=== PATIENT | male | born 1985 | race Caucasian/White ===

== ENCOUNTER 2021-07-23 15:14 | Inpatient (IN) | payer OTHER, SELFPAY ==
[~2021-07-23] VITALS: Ht 182.9 cm; Wt 81.6 kg
[2021-07-23] MEDS ORDERED: NS 1,000 ML IV ONE (19:35)
[2021-07-23 20:33] LABS: BASO % 0.6 % (0.0-1.0); EOS # 0.1 10^3/uL (0.0-0.5); EOS % 1.3 % (0.0-3.0); HEMATOCRIT 45.9 % (42.0-52.0); HEMOGLOBIN 15.3 g/dl (13.5-17.5); LYMPH # 0.9 10^3/uL (1.5-5.0); LYMPH % 17.3 % (24.0-44.0); MEAN CORPUSCULAR HEMOGLOBIN 27.9 pg (27.0-33.0); MEAN CORPUSCULAR HGB CONC 33.3 g/dl (32.0-36.5); MEAN CORPUSCULAR VOLUME 83.8 fl (80.0-96.0); MONO # 0.6 10^3/uL (0.0-0.8); NEUTROPHILS # 3.7 10^3/uL (1.5-8.5); NEUTROPHILS % 68.4 % (36.0-66.0); RED BLOOD COUNT 5.48 10^6/uL (4.30-6.10); WHITE BLOOD COUNT 5.3 10^3/uL (4.0-10.0)
[2021-07-23 20:43] LABS: INR 1.06; PROTHROMBIN TIME 14.2 SECONDS (12.7-14.5)
[2021-07-23 20:44] LABS: PARTIAL THROMBOPLASTIN TIME 28.1 SECONDS (25.9-37.0)
[2021-07-23 20:51] LABS: AMPHETAMINES LEVEL URINE NEGATIVE (NEGATIVE); BARBITURATES URINE NEGATIVE (NEGATIVE); BENZODIAZEPINES URINE NEGATIVE (NEGATIVE); CANNABINOIDS URINE POSITIVE (NEGATIVE); COCAINE METABOLITE URINE NEGATIVE (NEGATIVE); METHADONE URINE NEGATIVE (NEGATIVE); OPIATES URINE NEGATIVE (NEGATIVE); PHENCYCLIDINE URINE NEGATIVE (NEGATIVE)
[2021-07-23 20:53] LABS: PLATELET COUNT, AUTOMATED 1 10^3/uL (150-450)
[2021-07-23 21:02] LABS: ALBUMIN 4.2 GM/DL (3.2-5.2); ALT/SGPT 48 U/L (12-78); BILIRUBIN,DIRECT 0.3 MG/DL (0.0-0.2); BILIRUBIN,TOTAL 1.9 MG/DL (0.2-1.0); BLOOD UREA NITROGEN 20 MG/DL (7-18); CALCIUM LEVEL 9.5 MG/DL (8.5-10.1); CARBON DIOXIDE LEVEL 29 MEQ/L (21-32); CHLORIDE LEVEL 106 MEQ/L (98-107); CREATININE FOR GFR 0.92 MG/DL (0.70-1.30); GLOMERULAR FILTRATION RATE > 60.0 (>60); GLUCOSE, FASTING 84 MG/DL (70-100); POTASSIUM SERUM 3.7 MEQ/L (3.5-5.1); SODIUM LEVEL 140 MEQ/L (136-145); TOTAL PROTEIN 8.3 GM/DL (6.4-8.2)
--- NOTE | 2021-07-23 22:21 | HPEPDOC ---
[facility] Medical History & Physical Date of Admission Jul 23, 2021 Date of Service: Jul 23, 2021 Primary Care Physician: EARL HURST Attending Physician: LINCOLN SEAMAN MD History and Physical CHIEF COMPLAINT: rash HISTORY OF PRESENT ILLNESS: is a pleasant 36yo male w/ notable PMHx of cluster headaches and previous novel coronavirus infection (March 2021) who presented to the [facility] ED on 07/23/21 with a chief complaint of multiple small red areas on his skin. Roughly 2 weeks ago, the patient noticed small red areas over bilateral feet. Over the past week, more areas of redness have developed and have also now spread over bilateral upper and lower extremities, chest, and neck. He reports since the areas arose, his hands and feet have felt cold. He denies any associated pruritus. Patient denies any other symptoms on review; namely he denies any recent fever, chills, night sweats, unintentional change in weight, new lumps or bumps, areas of active bleeding/hemoptysis/melena/hematochezia/hematuria, chest pain, palpitations, dyspnea, pleuritic chest pain, abdominal pain/nausea/vomiting/diarrhea, dysuria. He also denies any recent changes to medications, recent significant travel, or sick contacts. Of note on review, patient reports taking LSD for abortive treatment of cluster headaches. He has been doing this for an extended period of time, and reports using only 1/5 of usual recreational dose. He has not had a cluster headache since December 2020, which was the last time he used LSD. Other than the LSD, he denies any other significant nonprescribed medication/IV drug/street drug use. In the ED, patient was found to have severe neutropenia (platelet count of 1000). The ED provider contacted the on-call project product manager/oncologist (Dr. Chong) who recommended starting the patient on oral daily dexamethasone for 4 days, intravenous immunoglobulin, abdominal ultrasound to assess for splenomegaly, and viral work-up in the form of HIV, hepatitis profile, and LDH. PAST MEDICAL/SURGICAL HISTORY: Cluster headaches, follows with Dr. Guy of [facility] ([place]). -Is prescribed 15 L of supplemental oxygen for 15 minutes for use and abortive treatment. -Also takes LSD as abortive measure as detailed above COVID-19 infection in March 2021; remains unvaccinated Left inguinal hernia surgery at the age of 13 or 14 Extraction of 2 lower wisdom teeth SOCIAL HISTORY: Engaged and lives in [place]. He is due to get later this week to his fiance of 11 years. Has a 5-year-old daughter. 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 Patient is a former smoker, having quit 9 years ago; [id number] history averaging 1.5 packs/day for 12-13 years. -Patient began vaping after stopping smoking; quit vaping in March 2021 when he had Covid Reports occasional alcohol use, drinking a couple drinks each month In addition to the LSD use for abortive measures related to cluster headaches, patient also occasionally smokes marijuana for insomnia; denies any IV drug use Patient reports he is monogamous with his fiance FAMILY HISTORY: Father: Hypertension and cluster headaches Brother: Cluster headaches ALLERGIES: Please see below. REVIEW OF SYSTEMS: 10 point review of systems complete, all negative otherwise stated in HPI HOME MEDICATIONS: Please see below. PHYSICAL EXAMINATION: VITAL SIGNS: Temperature 98.2, pulse 105, respiratory rate 16, blood pressure 128/80, pulse oximetry 98% on room air. GENERAL APPEARANCE: Pleasant thin male lying in ED bed. In no acute distress. Skin: There is petechiae widely dispersed over bilateral upper and lower extremities, chest, neck, scalp, head, and abdomen; areas of greatest density are over the dorsum of both feet. There is also mild amount of petechia of the mucous membranes underneath the tongue. Oral cavity: MMM. There are areas of mild petechiae underneath the tongue. No pharyngeal erythema or exudate appreciated. HEENT: Normocephalic, atraumatic. Noninjected, anicteric sclera. No significant conjunctival pallor appreciated. CARDIOVASCULAR: Regular rate, regular rhythm. Normal S1, S2. No murmurs or rubs appreciated. LUNGS: Clear to auscultation bilaterally with no adventitious breath sounds appreciated. Speaking full sentences. Breathing room air. Symmetric chest expansion. ABDOMEN: Hypoactive bowel sounds throughout. No guarding or rigidity appreciated. Soft, nontender nondistended. MUSCULOSKELETAL: 5/5 muscle strength of upper and lower extremities bilaterally. EXTREMITIES: Feet are cool to the touch bilaterally. 2+ radial pulses bilaterally. Bilateral lower extremities free of pitting edema. No signs of clubbing or cyanosis. NEUROLOGICAL: No gross focal neurologic deficits appreciated. Nondysarthric speech. PSYCHIATRIC: Mood and affect appear appropriate. LABORATORY DATA: Please see below. IMAGING: An abdominal ultrasound has been ordered and report is pending. MICROBIOLOGY: Please see below. ASSESSMENT & PLAN: This is a 36-year-old male with history of cluster headache and previous Covid- 19 infection (March 2021) who presented to the ED on 07/23 with 2 weeks of petechiae that started on his feet and have spread over all 4 extremities and chest. He was found to be severely thrombocytopenic. He will be admitted severe thrombocytopenia and treated for likely immune thrombocytopenia. #Severe thrombocytopenia -Patient presented with worsening diffuse petechiae over the past 2 weeks -Initial platelet count of 1000; hemoglobin and WBC unaffected, pointing to more of an ITP picture rather than TTP -Immature platelet fraction was elevated with normal hemoglobin and WBC, indicat ing that the issue is less likely of production, but more destructive -likely the result of immune thrombocytopenia; potentially from ITP and/or sequelae of recent Covid infection -Recent literature documents cases of immune thrombocytopenia in patients who have been infected with COVID-19 -ED provider spoke with Dr. Chong of hematology/oncology regarding the patient -Per ED provider, Dr. Chong recommended abdominal ultrasound to assess for splenomegaly; 4 days of oral dexamethasone 40 mg qd; intravenous immunoglobulin 1 g/kg IV x2 days; viral work-up (HIV and hepatitis profile); peripheral smear ordered -Repeat CBC with differential has been ordered #Direct hyperbilirubinemia -T bili 1.9, direct bili 0.3 -AST and ALT WNL -Patient denies any abdominal pain; no signs of jaundice on exam; patient reports that he has been told at prior healthcare provider appointment that he had elevated bilirubin -An abdominal ultrasound has been ordered in the setting of the severe thromb ocytopenia to assess his spleen that should also provide context on biliary tree #Tachycardia -Patient initially was tachycardic with a heart rate of 105; at time of admission examination, repeat pulse manually was 84 bpm -Patient denies any current or recent chest pain, chest pressure, shortness of breath, or palpitations #History of cluster headaches -Patient reports last headache was in December 2020; uses both prescribed oxygen and LSD for abortive treatments -Both the patient's father and brother also suffered from cluster headaches -Patient had been following with Dr. Guy of [facility] here in [place], but, per patient, has not been seen in 5 years #DVT prophylaxis: Pharmacotherapy deferred in the setting of severe neutropenia; teds and sequentials ordered CODE STATUS: Full code Disposition: Pending improvement in severe thrombocytopenia. Vital Signs Vital Signs Date Time Temp Pulse Resp B/P (MAP) Pulse Ox O2 Delivery O2 Flow Rate FiO2 07/23/21 15:14 98.2 105 16 128/80 (96) 98 Room Air Laboratory Data Labs 24H Laboratory Tests 2 07/23/21 19:41: Urine Opiates Screen NEGATIVE, Urine Methadone Screen NEGATIVE, Urine Barbiturates Screen NEGATIVE, Urine Phencyclidine Screen NEGATIVE, Urine Amphetamines Screen NEGATIVE, Urine Benzodiazepines Screen NEGATIVE, Urine Cocaine Metabolite Screen NEGATIVE, Urine Cannabinoids Screen POSITIVEH 07/23/21 19:56: Immature Granulocyte % (Auto) 0.4, Neutrophils (%) (Auto) 68.4H, Lymphocytes (%) (Auto) 17.3L, Monocytes (%) (Auto) 12.0H, Eosinophils (%) (Auto) 1.3, Basophils (%) (Auto) 0.6, Neutrophils # (Auto) 3.7, Lymphocytes # (Auto) 0.9L, Monocytes # (Auto) 0.6, Eosinophils # (Auto) 0.1, Basophils # (Auto) 0.0, Nucleated Red Blood Cells % (auto) 0.0, Differential Slide Review Report, Immature Platelet Fraction 11.9H, Peripheral Blood Smear Path Consult PERIPHERAL SMEAR, Prothrombin Time 14.2H, Prothromb Time International Ratio 1.06, Activated Partial Thromboplast Time 28.1, Fibrinogen 367, Anion Gap 5L, Glomerular Filtration Rate > 60.0, Calcium Level 9.5, Total Bilirubin 1.9H, Direct Bilirubin 0.3H, Aspartate Amino Transf (AST/SGOT) 28, Alanine Aminotransferase (ALT/SGPT) 48, Alkaline Phosphatase 89, Total Protein 8.3H, Albumin 4.2, Albumin/Globulin Ratio 1.0 CBC/BMP Laboratory Tests 07/23/21 19:56 Home Medications Scheduled Multivitamins (Thera M Plus Tablet) 1 Each Tablet, 1 TAB PO DAILY Allergies Coded Allergies: No Known Allergies (Verified Allergy, Unknown, 07/23/21) GME ATTESTATION GME ATTESTATION My faculty preceptor for this patient encounter was physically present during the encounter and was fully available. All aspects of the patient interview, examination, medical decision making process, and medical care plan development were reviewed and approved by the faculty preceptor. The faculty preceptor is aware and concurs with the plan as stated in the body of this note and will attest to such by his/her cosignature. ATTENDING NOTE Time of service 925pm Mr. Tompkins is a 36 yr old w a hx of polysubstance (LSD and THC) abuse who has had bleeding gums and a red rash on his lower extremities. He will be admitted for #Acute thrombocytopenia possibly due to drug induced vs 2/2 increased destruction ( ie immune disorders, viral infection, HIV ) vs due splenic sequestration. - because the patient is not having life threatening bleeding we will hold off platelet transfusion until ITP & TTP are definitively r/o Rest per H&P JUAN BONNER D.O. Jul 23, 2021 22:21 LINCOLN SEAMAN MD Jul 24, 2021 04:16
[2021-07-23 22:44] LABS: HEPATITIS A ANTIBODY IGM NEGATIVE (NEGATIVE); HEPATITIS B CORE ANTIBODY IGM NEGATIVE (NEGATIVE); HEPATITIS B SURFACE ANTIGEN NEGATIVE (NEGATIVE); HEPATITIS C VIRUS ABY INDEX 0.1 INDEX (<0.8); HIV 1&2 SCREEN CENTAUR NEGATIVE (NEGATIVE); LDH LACTATE DEHYDROGENASE 259 U/L (87-241)
--- NOTE | 2021-07-23 23:14 | REPVR ---
PROCEDURE INFORMATION: Exam: US Abdomen; Limited Exam date and time: 07/23/21 (9:30pm) Age: 36 years old Clinical indication: Thrombocytopenia. Possible splenomegaly. TECHNIQUE: Imaging protocol: US abdomen. Real time ultrasound with image documentation. Limited examination focused on the region of clinical interest. COMPARISON: No relevant prior studies available FINDINGS: A limited examination was performed, with visualization of the spleen and left kidney. The spleen is enlarged, measuring 12.1 cm in length. No focal splenic lesions. The left kidney measures 10.6 cm in length. No hydronephrosis. No renal mass is seen. No abnormal fluid collections. No abnormal mass is seen. IMPRESSION: No acute findings. Splenomegaly. No focal splenic lesions. The left kidney is unremarkable. Electronically signed by: Migdalia Mcdonald On 07/23/2021 23:14:00 PM
[2021-07-23] MEDS ORDERED: VITMTA PO (23:27)
[2021-07-23 23:28] LABS: PLTBLUE- EDTA FREE CALC 1 K/mm3 (172-450)
[2021-07-23 23:29] LABS: PLTBLUE- EDTA FREE MACHINE 1 10^3/uL (172-450)
[2021-07-23] MEDS ORDERED: HOME MED LIST COMPLETE! XX SCH (23:30)
[2021-07-24] MEDS: IMMUNE GLOBULIN 10% 80 GM in IV 1 EA IV SCH ×2 (01:00→07:42)
[2021-07-24] MEDS: NS 1,000 ML IV SCH ×2 (04:15→20:53)
[2021-07-24 05:45] LABS: HEMATOCRIT 40.1 % (42.0-52.0); HEMOGLOBIN 13.4 g/dl (13.5-17.5); LYMPH # 0.3 10^3/uL (1.5-5.0); LYMPH % 7.2 % (24.0-44.0); MEAN CORPUSCULAR HEMOGLOBIN 27.9 pg (27.0-33.0); MEAN CORPUSCULAR HGB CONC 33.4 g/dl (32.0-36.5); MEAN CORPUSCULAR VOLUME 83.5 fl (80.0-96.0); MONO % 0.7 % (2.0-8.0); NEUTROPHILS # 3.7 10^3/uL (1.5-8.5); NEUTROPHILS % 91.9 % (36.0-66.0)
[2021-07-24 06:27] LABS: ALBUMIN 3.3 GM/DL (3.2-5.2); ALT/SGPT 37 U/L (12-78); BILIRUBIN,TOTAL 1.4 MG/DL (0.2-1.0); BLOOD UREA NITROGEN 16 MG/DL (7-18); CALCIUM LEVEL 8.6 MG/DL (8.5-10.1); CARBON DIOXIDE LEVEL 24 MEQ/L (21-32); CHLORIDE LEVEL 109 MEQ/L (98-107); GLOMERULAR FILTRATION RATE > 60.0 (>60); GLUCOSE, FASTING 186 MG/DL (70-100); MAGNESIUM LEVEL 1.8 MG/DL (1.8-2.4); PLATELET COUNT, AUTOMATED 1 10^3/uL (150-450); SODIUM LEVEL 140 MEQ/L (136-145); TOTAL PROTEIN 7.6 GM/DL (6.4-8.2)
[2021-07-24] MEDS ORDERED: OMEPRAZOLE 20 MG CAP PO ONE (11:10)
--- NOTE | 2021-07-24 11:42 | IPNPDOC ---
Text Note Date of Service The patient was seen on 07/24/21. NOTE Subjective: No any acute events overnight. No any signs of bleeding Objective: GENERAL APPEARANCE: NAD HEENT: no scleral icterus, no JVD, EOMI CARDIOVASCULAR: S1S2 LUNGS: Diminished lung sounds bilaterally ABDOMEN: soft & not tender w palpation MUSCULOSKELETAL: no cyanosis, no swelling INTEGUMENT: Multiple petechia of lower extremities and shoulder area NEUROLOGICAL: cranial nerve function from 2-12 intact, follows commands, speech not dysarthric Assessment: Patient is 36 years old male with past medical history of cluster headache was admitted to the hospital with thrombocytopenia. Thrombocytopenia/ITP Most likely patient developed ITP Hematology team recommended dexamethasone 40 mg for 4 days and IgG IV 1 g/kg daily for 2 -3 days Hepatitis panel negative Await H. pylori test TRANG pending HIV test for antibody negative Continue to monitor platelet count No signs of internal bleeding History of cluster headache Follow-up with PCP DVT prophylaxis with teds and sequential VS,Fishbone, I+O VS, Fishbone, I+O Laboratory Tests 07/23/21 19:56 07/24/21 05:18 Vital Signs Date Time Temp Pulse Resp B/P (MAP) Pulse Ox O2 Delivery O2 Flow Rate FiO2 07/24/21 07:48 97.5 84 16 120/76 (91) 99 Room Air I&O- Last 24 Hours up to 6 AM 07/24/21 06:00 Intake Total 1000 ml Balance 1000 ml GREG PRECIADO DO Jul 24, 2021 11:42
[2021-07-24 15:25] VITALS: BP 128/73
[2021-07-24 16:36] LABS: BASO % 0.1 % (0.0-1.0); HEMATOCRIT 40.7 % (42.0-52.0); HEMOGLOBIN 13.7 g/dl (13.5-17.5); LYMPH # 0.3 10^3/uL (1.5-5.0); MEAN CORPUSCULAR HEMOGLOBIN 28.1 pg (27.0-33.0); MEAN CORPUSCULAR HGB CONC 33.7 g/dl (32.0-36.5); MEAN CORPUSCULAR VOLUME 83.6 fl (80.0-96.0); MONO # 0.2 10^3/uL (0.0-0.8); MONO % 1.8 % (2.0-8.0); NEUTROPHILS # 10.9 10^3/uL (1.5-8.5); NEUTROPHILS % 94.7 % (36.0-66.0); RED BLOOD COUNT 4.87 10^6/uL (4.30-6.10); WHITE BLOOD COUNT 11.5 10^3/uL (4.0-10.0)
[2021-07-24 16:42] LABS: PLATELET COUNT, AUTOMATED 11 10^3/uL (150-450)
--- NOTE | 2021-07-24 18:49 | CR.PDOC ---
General Date of Consultation: Jul 24, 2021 Referring Provider: GRGE PRECIADO DO Attending Physician: GREG PRECIADO DO Consultation REASON FOR CONSULTATION: Profound thrombocytopenia HISTORY OF PRESENT ILLNESS: 36-year-old came in for petechial rash. Platelet count noted to be 1K/UL. ALLERGIES: Please see below. HOME MEDICATIONS: Please see below. PAST MEDICAL HISTORY: Cluster headaches COVID-19 infection in March 2021; unvaccinated PAST SURGICAL HISTORY: Left inguinal hernia surgery at the age of 13 or 14 Extraction of 2 lower wisdom teeth SOCIAL HISTORY: Former smoker with [id number] history of smoking. Quit 9 years ago. Has also been vaping up to March 2021. Occasional alcohol. Uses LSD for headaches. And also smokes marijuana. 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 FAMILY HISTORY: Father: Hypertension and cluster headaches Brother: Cluster headaches REVIEW OF SYSTEMS: The patient reports petechial rash. No other bleeding issues. In particular no epistaxis, no rectal bleeding. No urinary bleeding or gum bleeding. No fevers. No night sweats. No weight loss. Rest of review of systems negative. PHYSICAL EXAMINATION: VITAL SIGNS: Please see below. GENERAL APPEARANCE: Lying comfortably in bed, not in distress. Communicative. HEENT: Pinkish conjunctive anicteric sclerae. No oral mucosal lesions. RESPIRATORY: Lungs are clear. No rales rhonchi no wheeze. CARDIOVASCULAR: S1-S2 regular. No murmur. No gallop. ABDOMEN: Soft, nontender, no guarding, spleen not palpable below costal margin. EXTREMITIES: No clubbing. No cyanosis. No pedal edema. Petechial rash over lower extremities. NEUROLOGICAL: Alert, oriented X3. PSYCHIATRIC: Normal mood. LABORATORY DATA: Please see below. ASSESSMENT/PLAN: Profound thrombocytopenia likely ITP. Platelet count 1 K/UL. Normal WBC count. Normal hemoglobin level. EDTA free platelet count 1K/UL. Peripheral smear review 07/24/2021: Thrombocytopenia. Unremarkable RBC and WBC morphology. HIV negative. Hepatitis C negative. TRANG pending. Abdominal ultrasound 07/23/2021 reported splenomegaly at 12.1 cm. The patient is currently on pulse dexamethasone 40 mg p.o. daily x4 days. Has also started IVIG 1 g/kg to be given for 2 days. Continue monitoring platelet count. May transfuse platelets if actively bleeding and platelet count less than 50 K/UL. I recommend a bone marrow aspiration and biopsy as patient has splenomegaly. The patient tells me that he is getting on Wednesday and wants to leave on Wednesday. I discussed that there is a possibility that his platelet count may not be optimal for discharge on Wednesday. Will arrange a follow-up appointment as outpatient if the patient decides to leave this weekend. Thank you for referring Mr. Mehrdad Tompkins. Vital Signs/I&O Vital Signs Date Time Temp Pulse Resp B/P (MAP) Pulse Ox O2 Delivery O2 Flow Rate FiO2 07/24/21 15:25 98.0 100 22 128/73 (91) 97 Room Air I&O- Last 24 Hours up to 6 AM 07/24/21 06:00 Intake Total 1000 ml Balance 1000 ml Laboratory Data Labs 24H Laboratory Tests 2 07/23/21 19:41: Urine Opiates Screen NEGATIVE, Urine Methadone Screen NEGATIVE, Urine Barbiturates Screen NEGATIVE, Urine Phencyclidine Screen NEGATIVE, Urine Amphetamines Screen NEGATIVE, Urine Benzodiazepines Screen NEGATIVE, Urine Cocaine Metabolite Screen NEGATIVE, Urine Cannabinoids Screen POSITIVEH 07/23/21 19:56: Immature Granulocyte % (Auto) 0.4, Neutrophils (%) (Auto) 68.4H, Lymphocytes (%) (Auto) 17.3L, Monocytes (%) (Auto) 12.0H, Eosinophils (%) (Auto) 1.3, Basophils (%) (Auto) 0.6, Neutrophils # (Auto) 3.7, Lymphocytes # (Auto) 0.9L, Monocytes # (Auto) 0.6, Eosinophils # (Auto) 0.1, Basophils # (Auto) 0.0, Nucleated Red Blood Cells % (auto) 0.0, Differential Slide Review Report, Immature Platelet Fraction 11.9H, Peripheral Blood Smear Path Consult PERIPHERAL SMEAR, Prothrombin Time 14.2H, Prothromb Time International Ratio 1.06, Activated Partial Thromboplast Time 28.1, Fibrinogen 367, Anion Gap 5L, Glomerular Filtration Rate > 60.0, Calcium Level 9.5, Total Bilirubin 1.9H, Direct Bilirubin 0.3H, Aspartate Amino Transf (AST/SGOT) 28, Alanine Aminotransferase (ALT/SGPT) 48, Alkaline Phosphatase 89, Lactate Dehydrogenase 259H, Total Protein 8.3H, Albumin 4.2, Albumin/Globulin Ratio 1.0, Hepatitis A IgM Antibody NEGATIVE, Hepatitis B Surface Antigen NEGATIVE, Hepatitis B Core IgM Antibody NEGATIVE, Hepatitis C Antibody Index 0.1, HIV Antigen/Antibody Combo Qual NEGATIVE 07/23/21 23:17: Platelet Count, EDTA Free 1*L 07/24/21 05:18: Immature Granulocyte % (Auto) 0.2, Neutrophils (%) (Auto) 91.9H, Lymphocytes (%) (Auto) 7.2L, Monocytes (%) (Auto) 0.7L, Eosinophils (%) (Auto) 0.0, Basophils (%) (Auto) 0.0, Neutrophils # (Auto) 3.7, Lymphocytes # (Auto) 0.3L, Monocytes # (Auto) 0.0, Eosinophils # (Auto) 0.0, Basophils # (Auto) 0.0, Nucleated Red Blood Cells % (auto) 0.0, Anion Gap 7L, Glomerular Filtration Rate > 60.0, Calcium Level 8.6, Total Bilirubin 1.4H, Aspartate Amino Transf (AST/SGOT) 17, Alanine Aminotransferase (ALT/SGPT) 37, Alkaline Phosphatase 77, Total Protein 7.6, Albumin 3.3#, Albumin/Globulin Ratio 0.8, Magnesium Level 1.8 07/24/21 16:19: Immature Granulocyte % (Auto) 0.4, Neutrophils (%) (Auto) 94.7H, Lymphocytes (%) (Auto) 3.0L, Monocytes (%) (Auto) 1.8L, Eosinophils (%) (Auto) 0.0, Basophils (%) (Auto) 0.1, Neutrophils # (Auto) 10.9H, Lymphocytes # (Auto) 0.3L, Monocytes # (Auto) 0.2, Eosinophils # (Auto) 0.0, Basophils # (Auto) 0.0, Nucleated Red Blood Cells % (auto) 0.0 CBC/BMP Laboratory Tests 07/23/21 19:56 07/24/21 05:18 07/24/21 16:19 Microbiology Microbiology 07/24/21 Respiratory Virus Panel (PCR) ([facility]) - Final, Complete Allergies Coded Allergies: No Known Allergies (Verified Allergy, Unknown, 07/23/21) Home Medications Scheduled Multivitamins (Thera M Plus Tablet) 1 Each Tablet, 1 TAB PO DAILY, (Reported) JASVIR RICE MD [facility] Jul 24, 2021 18:06
[2021-07-24 20:00] VITALS: BP 120/74
[2021-07-25] VITALS (19 sets, daily range): BP systolic 103–121; BP diastolic 54–83
[2021-07-25 06:11] LABS: BASO % 0.1 % (0.0-1.0); HEMATOCRIT 37.2 % (42.0-52.0); HEMOGLOBIN 12.3 g/dl (13.5-17.5); LYMPH # 0.5 10^3/uL (1.5-5.0); LYMPH % 3.3 % (24.0-44.0); MEAN CORPUSCULAR HEMOGLOBIN 28.1 pg (27.0-33.0); MEAN CORPUSCULAR HGB CONC 33.1 g/dl (32.0-36.5); MEAN CORPUSCULAR VOLUME 85.1 fl (80.0-96.0); MONO # 0.8 10^3/uL (0.0-0.8); MONO % 5.2 % (2.0-8.0); NEUTROPHILS # 14.1 10^3/uL (1.5-8.5); NEUTROPHILS % 90.9 % (36.0-66.0); RED BLOOD COUNT 4.37 10^6/uL (4.30-6.10); WHITE BLOOD COUNT 15.5 10^3/uL (4.0-10.0)
[2021-07-25 06:14] LABS: PLATELET COUNT, AUTOMATED 18 10^3/uL (150-450)
[2021-07-25 06:29] LABS: ALBUMIN 2.7 GM/DL (3.2-5.2); ALT/SGPT 38 U/L (12-78); BILIRUBIN,TOTAL 0.8 MG/DL (0.2-1.0); BLOOD UREA NITROGEN 14 MG/DL (7-18); CALCIUM LEVEL 8.3 MG/DL (8.5-10.1); CARBON DIOXIDE LEVEL 25 MEQ/L (21-32); CHLORIDE LEVEL 113 MEQ/L (98-107); CREATININE FOR GFR 0.88 MG/DL (0.70-1.30); GLOMERULAR FILTRATION RATE > 60.0 (>60); GLUCOSE, FASTING 137 MG/DL (70-100); MAGNESIUM LEVEL 1.7 MG/DL (1.8-2.4); POTASSIUM SERUM 4.1 MEQ/L (3.5-5.1); SODIUM LEVEL 143 MEQ/L (136-145); TOTAL PROTEIN 7.7 GM/DL (6.4-8.2)
[2021-07-25] MEDS ORDERED: IMMUNE GLOBULIN 10% 80 GM in IV 1 EA IV SCH (08:00)
[2021-07-25] MEDS: OMEPRAZOLE 20 MG CAP PO SCH (10:33)
[2021-07-25] MEDS: NS 1,000 ML IV SCH (10:33)
[2021-07-25 11:08] LABS: ANTINUCLEAR ANTIBODIES DIRECT Negative (Negative)
--- NOTE | 2021-07-25 11:45 | IPNPDOC ---
Text Note Date of Service The patient was seen on 07/25/21. NOTE Subjective: No any acute events overnight. No any signs of bleeding. Patient denied any fever or chills Objective: GENERAL APPEARANCE: NAD HEENT: no scleral icterus, no JVD, EOMI CARDIOVASCULAR: S1S2 LUNGS: Diminished lung sounds bilaterally ABDOMEN: soft & not tender w palpation MUSCULOSKELETAL: no cyanosis, no swelling INTEGUMENT: Multiple petechia of lower extremities and shoulder area NEUROLOGICAL: cranial nerve function from 2-12 intact, follows commands, speech not dysarthric Assessment: Patient is 36 years old male with past medical history of cluster headache was admitted to the hospital with thrombocytopenia. Thrombocytopenia/ITP Most likely patient developed ITP Hematology team recommended dexamethasone 40 mg for 4 days and IgG IV 1 g/kg daily for 2 -3 days Hepatitis panel negative Await H. pylori test TRANG negative HIV test for antibody negative platelet count improved today and became 18 No signs of internal bleeding Dr. Chong saw patient yesterday she recommended but marrow biopsy however his platelet count less than 50,000 Most likely patient will need bone marrow biopsy in the outpatient settings History of cluster headache Follow-up with PCP DVT prophylaxis with teds and sequential VS,Fishbone, I+O VS, Fishbone, I+O Laboratory Tests 07/24/21 16:19 07/25/21 05:40 Vital Signs Date Time Temp Pulse Resp B/P (MAP) Pulse Ox O2 Delivery O2 Flow Rate FiO2 07/25/21 08:30 98.9 87 18 115/73 (87) 95 Room Air I&O- Last 24 Hours up to 6 AM 07/25/21 06:00 Intake Total 1160 ml Output Total 0 ml Balance 1160 ml GREG PRECIADO DO Jul 25, 2021 11:45
[2021-07-26] VITALS: BP 117/68
[2021-07-26] MEDS: NS 1,000 ML IV SCH (00:46)
[2021-07-26 04:00] VITALS: BP 104/59
[2021-07-26 06:24] LABS: BASO % 0.1 % (0.0-1.0); HEMATOCRIT 35.8 % (42.0-52.0); HEMOGLOBIN 11.9 g/dl (13.5-17.5); LYMPH # 0.5 10^3/uL (1.5-5.0); LYMPH % 4.5 % (24.0-44.0); MEAN CORPUSCULAR HEMOGLOBIN 28.7 pg (27.0-33.0); MEAN CORPUSCULAR HGB CONC 33.2 g/dl (32.0-36.5); MEAN CORPUSCULAR VOLUME 86.3 fl (80.0-96.0); MONO # 0.5 10^3/uL (0.0-0.8); MONO % 5.2 % (2.0-8.0); NEUTROPHILS # 9.3 10^3/uL (1.5-8.5); NEUTROPHILS % 89.5 % (36.0-66.0); RED BLOOD COUNT 4.15 10^6/uL (4.30-6.10); WHITE BLOOD COUNT 10.4 10^3/uL (4.0-10.0)
[2021-07-26 06:31] LABS: PLATELET COUNT, AUTOMATED 33 10^3/uL (150-450)
[2021-07-26 06:50] LABS: ALBUMIN 2.5 GM/DL (3.2-5.2); ALT/SGPT 31 U/L (12-78); BILIRUBIN,TOTAL 0.9 MG/DL (0.2-1.0); BLOOD UREA NITROGEN 17 MG/DL (7-18); CALCIUM LEVEL 7.8 MG/DL (8.5-10.1); CARBON DIOXIDE LEVEL 27 MEQ/L (21-32); CHLORIDE LEVEL 109 MEQ/L (98-107); CREATININE FOR GFR 0.82 MG/DL (0.70-1.30); GLOMERULAR FILTRATION RATE > 60.0 (>60); GLUCOSE, FASTING 120 MG/DL (70-100); MAGNESIUM LEVEL 2.1 MG/DL (1.8-2.4); SODIUM LEVEL 140 MEQ/L (136-145); TOTAL PROTEIN 8.6 GM/DL (6.4-8.2)
[2021-07-26 08:00] VITALS: BP 108/63
[2021-07-26] MEDS: OMEPRAZOLE 20 MG CAP PO SCH (09:58)
[2021-07-26 10:00] VITALS: BP 126/77
[2021-07-26 11:46] LABS: BASO % 0.2 % (0.0-1.0); HEMATOCRIT 36.2 % (42.0-52.0); LYMPH # 0.6 10^3/uL (1.5-5.0); LYMPH % 4.8 % (24.0-44.0); MEAN CORPUSCULAR HEMOGLOBIN 28.2 pg (27.0-33.0); MEAN CORPUSCULAR HGB CONC 33.1 g/dl (32.0-36.5); MONO # 1.1 10^3/uL (0.0-0.8); MONO % 8.7 % (2.0-8.0); NEUTROPHILS # 10.5 10^3/uL (1.5-8.5); NEUTROPHILS % 85.6 % (36.0-66.0); PLATELET COUNT, AUTOMATED 30 10^3/uL (150-450); RED BLOOD COUNT 4.26 10^6/uL (4.30-6.10); WHITE BLOOD COUNT 12.3 10^3/uL (4.0-10.0)
[2021-07-26 12:00] VITALS: BP 105/65
[2021-07-26] MEDS ORDERED: DEXA4TA PO (12:02)
--- NOTE | 2021-07-26 15:40 | DS.PDOC ---
Discharge Summary General Date of Admission Jul 23, 2021 at 21:13 Date of Discharge 07/26/21 Discharge Summary PROCEDURES PERFORMED DURING STAY: [None]. ADMITTING DIAGNOSES: Severe thrombocytopenia Direct hyperbilirubinemia Tachycardia History of cluster headaches DISCHARGE DIAGNOSES: Severe thrombocytopenia/ ITP Direct hyperbilirubinemia Tachycardia History of cluster headaches COMPLICATIONS/CHIEF COMPLAINT: Tachycardia,Thrombocytopenia. HISTORY OF PRESENT ILLNESS: is a pleasant 36yo male w/ notable PMHx of cluster headaches and previous novel coronavirus infection (March 2021) who presented to the [facility] ED on 07/23/21 with a chief complaint of multiple small red areas on his skin. Roughly 2 weeks ago, the patient noticed small red areas over bilateral feet. Over the past week, more areas of redness have developed and have also now spread over bilateral upper and lower extremities, chest, and neck. He reports since the areas arose, his hands and feet have felt cold. He denies any associated pruritus. Patient denies any other symptoms on review; namely he denies any recent fever, chills, night sweats, unintentional change in weight, new lumps or bumps, areas of active bleeding/hemoptysis/melena/hematochezia/hematuria, chest pain, palpitations, dyspnea, pleuritic chest pain, abdominal pain/nausea/vomiting/diarrhea, dysuria. He also denies any recent changes to medications, recent significant travel, or sick contacts. In the ED, patient was found to have severe neutropenia (platelet count of 1000). The ED provider contacted the on-call scientist engineer/oncologist (Dr. Hemant wyman) who recommended starting the patient on oral daily dexamethasone for 4 days, intravenous immunoglobulin, abdominal ultrasound to assess for splenomegaly, and viral work-up in the form of HIV, hepatitis profile, and LDH. HOSPITAL COURSE: During the hospital stay the following issue addressed Most likely patient developed ITP Patient received dexamethasone 40 mg for 4 days and IgG IV 1 g/kg daily for 2 -3 days Hepatitis panel negative H. pylori test pending TRANG negative HIV test for antibody negative platelet count improved today and became 33 today No signs of internal bleeding Dr. Chong recommended but marrow biopsy however his platelet count less than 50,000 Most likely patient will need bone marrow biopsy in the outpatient settings I talked to Dr. Bañuelos, he is okay to discharge patient today with close follow-up with scientist engineer DISCHARGE MEDICATIONS: Please see below. ALLERGIES: Please see below. PHYSICAL EXAMINATION ON DISCHARGE: VITAL SIGNS: Please see below. Objective: GENERAL APPEARANCE: NAD HEENT: no scleral icterus, no JVD, EOMI CARDIOVASCULAR: S1S2 LUNGS: Diminished lung sounds bilaterally ABDOMEN: soft & not tender w palpation MUSCULOSKELETAL: no cyanosis, no swelling INTEGUMENT: Multiple petechiae of lower extremities bilaterally and over shoulders NEUROLOGICAL: cranial nerve function from 2-12 intact, follows commands, speech not dysarthric LABORATORY DATA: Please see below. IMAGING: [facility] NAME: ANGELA AKINS DATE OF : 1985 BUSINESS NUMBER: [id number] AGE: 36 SEX: M REPORT #: [id number] ROOM: ED INP TECHNOLOGIST: RITA DOCTOR: JONATHAN BLANCO PA-C Ordered for Date&Time: 07/23/212107 cc: [~ rep ct ivnm] Service Date&Time: 07/23/212140 This report is in Signed status. Interpretation performed by [facility]. Thank you for having your radiology procedures performed at [facility] RADIOLOGY REPORT Date&Time printed: [~ rep prt dt last] [~ rep prt tm last] Page 2 of 2 [place] [id number] RADIOLOGY REPORT This report is in Signed status. Interpretation performed by [facility]. Thank you for having your radiology procedures performed at [facility] RADIOLOGY REPORT Date&Time printed: [~ rep prt dt last] [~ rep prt tm last] Page 1 of 1 Exam: US Abdomen; Limited Exam date and time: 07/23/21 (9:30pm) Age: 36 years old Clinical indication: Thrombocytopenia. Possible splenomegaly. TECHNIQUE: Imaging protocol: US abdomen. Real time ultrasound with image documentation. Limited examination focused on the region of clinical interest. COMPARISON: No relevant prior studies available FINDINGS: A limited examination was performed, with visualization of the spleen and left kidney. The spleen is enlarged, measuring 12.1 cm in length. No focal splenic lesions. The left kidney measures 10.6 cm in length. No hydronephrosis. No renal mass is seen. No abnormal fluid collections. No abnormal mass is seen. IMPRESSION: No acute findings. Splenomegaly. No focal splenic lesions. The left kidney is unremarkable. Electronically signed by: Migdalia Wu On 07/23/2021 23:14:00 PM DD: MIGDALIA WU MD 07/23/212140 DT: JEVON 07/23/212313 DS: LOUISA 07/23/212313 [~ rep ct labl] PROGNOSIS: Fair ACTIVITY: [As tolerated]. DIET: Regular DISCHARGE PLAN: Home DISCHARGE INSTRUCTIONS: Avoid alcohol, avoid contact sport till normalization of platelet count ITEMS TO FOLLOWUP ON ON OUTPATIENT: Follow-up with oncologist scientist engineer Dr. Chong DISCHARGE CONDITION: [Stable]. TIME SPENT ON DISCHARGE: 40minutes. Vital Signs/I&Os Vital Signs Date Time Temp Pulse Resp B/P (MAP) Pulse Ox O2 Delivery O2 Flow Rate FiO2 07/26/21 12:00 97.7 57 20 105/65 (78) 97 Room Air I&O- Last 24 Hours up to 6 AM 07/26/21 06:00 Intake Total 600 ml Output Total 0 ml Balance 600 ml Laboratory Data Labs 24H Laboratory Tests 2 07/26/21 04:56: Immature Granulocyte % (Auto) 0.7, Neutrophils (%) (Auto) 89.5H, Lymphocytes (%) (Auto) 4.5L, Monocytes (%) (Auto) 5.2, Eosinophils (%) (Auto) 0.0, Basophils (%) (Auto) 0.1, Neutrophils # (Auto) 9.3H, Lymphocytes # (Auto) 0.5L, Monocytes # (Auto) 0.5, Eosinophils # (Auto) 0.0, Basophils # (Auto) 0.0, Nucleated Red Blood Cells % (auto) 0.0, Anion Gap 4L, Glomerular Filtration Rate > 60.0, Calcium Level 7.8L, Magnesium Level 2.1, Total Bilirubin 0.9, Aspartate Amino Transf (AST/SGOT) 14, Alanine Aminotransferase (ALT/SGPT) 31, Alkaline Phosphatase 61, Total Protein 8.6H, Albumin 2.5L, Albumin/Globulin Ratio 0.4 07/26/21 11:26: Immature Granulocyte % (Auto) 0.7, Neutrophils (%) (Auto) 85.6H, Lymphocytes (%) (Auto) 4.8L, Monocytes (%) (Auto) 8.7H, Eosinophils (%) (Auto) 0.0, Basophils (%) (Auto) 0.2, Neutrophils # (Auto) 10.5H, Lymphocytes # (Auto) 0.6L, Monocytes # (Auto) 1.1H, Eosinophils # (Auto) 0.0, Basophils # (Auto) 0.0, Nucleated Red Blood Cells % (auto) 0.0, Immature Platelet Fraction 10.3 CBC/BMP Laboratory Tests 07/26/21 04:56 07/26/21 11:26 Microbiology Microbiology 07/24/21 Respiratory Virus Panel (PCR) ([facility]) - Final, Complete Discharge Medications Scheduled Dexamethasone (Dexamethasone) 4 Mg Tablet, 40 MG PO DAILY Multivitamins (Thera M Plus Tablet) 1 Each Tablet, 1 TAB PO DAILY, (Reported) Allergies Coded Allergies: No Known Allergies (Verified Allergy, Unknown, 07/23/21) GREG PRECIADO DO Jul 26, 2021 15:40
== END 2021-07-26 15:20 | disposition home or self-care (01) | DRG 661 ==
LOC: M ED 15:14 → M ED INP 21:13 → M PCU 21:13 → ENRESERV 07-24 13:30 → M PCU 07-24 15:21
PROVIDERS: ADMIT Internal Medicine; ATTEND Internal Medicine
DX: D69.3 Immune thrombocytopenic purpura (principal); D70.9 Neutropenia, unspecified; G44.009 Cluster headache syndrome, unspecified, not intractable; Z86.16 Personal history of COVID-19; Z87.891 Personal history of nicotine dependence; E80.6 Other disorders of bilirubin metabolism; F12.10 Cannabis abuse, uncomplicated; R16.1 Splenomegaly, not elsewhere classified

== ENCOUNTER → 2021-11-10 | Outpatient (CLI) | payer OTHER ==
[~2021-11-10] MED LIST: DEXA4TA PO; OMEP-173 PO; VITMTA PO
== END ==
LOC: M RAD 08:36
PROVIDERS: ATTEND Internal Medicine Medical Oncology
DX: R16.1 Splenomegaly, not elsewhere classified (principal)

== ENCOUNTER → 2023-02-06 | Outpatient (CLI) | payer OTHER ==
[2023-02-06 10:13] LABS: HEMATOCRIT 45.2 % (42.0-52.0); HEMOGLOBIN 14.6 g/dl (13.5-17.5); MEAN CORPUSCULAR HEMOGLOBIN 27.1 pg (27.0-33.0); MEAN CORPUSCULAR HGB CONC 32.3 g/dl (32.0-36.5); MEAN CORPUSCULAR VOLUME 83.9 fl (80.0-96.0); PLATELET COUNT, AUTOMATED 261 10^3/uL (150-450); RED BLOOD COUNT 5.39 10^6/uL (4.30-6.10); WHITE BLOOD COUNT 4.4 10^3/uL (4.0-10.0)
[2023-02-06 10:39] LABS: ALKALINE PHOSPHATASE 76 U/L (46-116); ALT/SGPT 27 U/L (7.0-40); AST/SGOT 14 U/L (<34); BILIRUBIN,TOTAL 0.7 MG/DL (0.3-1.2); BLOOD UREA NITROGEN 15 MG/DL (9-23); CALCIUM LEVEL 9.3 MG/DL (8.5-10.1); CARBON DIOXIDE LEVEL 27 MMOL/L (20-31); CHLORIDE LEVEL 107 MMOL/L (98-107); CHOLESTEROL LEVEL 139 MG/DL (<200); CHOLESTEROL RISK RATIO 2.66 (<5); CREATININE FOR GFR 0.87 MG/DL (0.70-1.30); GLOMERULAR FILTRATION RATE > 60.0 (>60); GLUCOSE, FASTING 102 MG/DL (60-100); HDL CHOLESTEROL 52.1 MG/DL (>40); LDL CHOLESTEROL 70.7 MG/DL (<100); NON-HDL-C 86.9 MG/DL; POTASSIUM SERUM 4.4 MMOL/L (3.5-5.1); SODIUM LEVEL 141 MMOL/L (136-145); TOTAL PROTEIN 7.3 G/DL (5.7-8.2); TRIGLYCERIDES LEVEL 81 MG/DL (<150)
[2023-02-06 10:40] LABS: THYROID STIMULATING HORMONE 1.054 uIU/ML (0.55-4.78); TOTAL 25(OH) VITAMIN D 20.6 NG/ML (20.0-100.0)
[2023-02-06 10:41] LABS: TESTOSTERONE 428 NG/DL (241-827)
[2023-02-06 10:56] LABS: HEMOGLOBIN A1c 5.6 % (4.0-6.0)
== END ==
LOC: M RAD 09:00 → M LAB 09:00
PROVIDERS: ATTEND Family Medicine
DX: D64.9 Anemia, unspecified (principal); R53.83 Other fatigue; E03.9 Hypothyroidism, unspecified; R91.8 Other nonspecific abnormal finding of lung field

== ENCOUNTER → 2023-07-28 | Outpatient (REF) | payer OTHER | LOC: M LABSMT 15:36 | PROVIDERS: ATTEND Urology | DX: Z30.2 Encounter for sterilization (principal) ==

== ENCOUNTER → 2023-09-15 | Outpatient (REF) | payer OTHER ==
[2023-09-15 10:08] LABS: SEMEN APPEARANCE OPAQUE (OPAQUE); SEMEN VISCOSITY LIQUID (LIQUID); SEMEN VOLUME 2.4 ml (2.0-5.0); SEMEN pH 8.5 (7.0-8.0)
[2023-09-15 10:09] LABS: WBC CONCENTRATION <=1 M/ml (<=1 M/ml)
== END ==
LOC: M SMT 09:38
PROVIDERS: ATTEND Urology
DX: Z30.2 Encounter for sterilization (principal)